=== PATIENT | female | born 1960 | race American Indian/Alaskan Native ===

== ENCOUNTER 2016-09-19 15:01 | Outpatient (CLI) | payer OTHER | END 2016-09-19 15:02 | disposition home or self-care (01) | LOC: LAB 15:01 → LABHHL 15:01 → LAB 15:02 | PROVIDERS: ATTEND Internal Medicine Gastroenterology | DX: Z12.11 Encounter for screening for malignant neoplasm of colon (principal) | CPT/HCPCS: 88305 ==

== ENCOUNTER 2016-12-06 09:42 | Outpatient (CLI) | payer OTHER ==
--- NOTE | 2016-12-06 10:49 | Mammography Report ---
RIGHT DIGITAL DIAGNOSTIC MAMMOGRAM with CAD: 12/06/16 00:00:00 CLINICAL: Follow-up post benign status post surgical excision of a benign fibroadenoma COMPARISON:05/23/16 FINDINGS: The previously described mass has been surgically excised and there are three surgical clips at the site.Mild postsurgical scar. No mass, architectural distortion or suspicious calcifications. IMPRESSION: No mammographic evidence of malignancy. BI-RADS CATEGORY: 2 -- Benign RECOMMENDATION: Return to routine mammographic screening. COMMENT: Patient follow-up letters are generated by our [employer] application.
== END 2016-12-06 09:43 | disposition home or self-care (01) ==
LOC: SPVWC 09:42
PROVIDERS: ATTEND Surgery
DX: D24.1 Benign neoplasm of right breast (principal)
CPT/HCPCS: G0206-RT